=== PATIENT | female | born 2005 | race Caucasian/White ===

== ENCOUNTER → 2024-06-15 | Outpatient (CLI) | payer BC ==
[2024-06-15 18:39] LABS: T4, Free (Free Thyroxine) 1.71 ng/dL (0.83-1.43)
== END | disposition home or self-care (01) ==
LOC: LABWHC1 12:11
DX: L50.3 Dermatographic urticaria (principal)
CPT/HCPCS: 36415; 84439; 84443

== ENCOUNTER → 2025-05-09 | Outpatient (CLI) | payer OTHER | END | disposition home or self-care (01) | LOC: LABWHC1 15:34 | DX: Z11.59 Encounter for screening for other viral diseases (principal) | CPT/HCPCS: 36415; 86803 ==